=== PATIENT | female | born 1970 ===

== ENCOUNTER → 2020-10-11 08:24 | Outpatient (BNVA) | payer MEDICARE, MEDICAID, SELFPAY | PROVIDERS: Referring Provider Internal Medicine; Visit Provider Psychiatry & Neurology Neurology | DX: R20.2 Paresthesia of skin (principal); G60.9 Hereditary and idiopathic neuropathy, unspecified; M79.671 Pain in right foot; M79.672 Pain in left foot; I10 Essential (primary) hypertension; E11.9 Type 2 diabetes mellitus without complications; Z79.4 Long term (current) use of insulin | CPT/HCPCS: 95909; 99205; G2212 ==

== ENCOUNTER 2021-07-05 13:06 | Outpatient (CLI) | payer MEDICARE, MEDICAID, SELFPAY ==
[2021-07-05 13:31] VITALS: BP 129/88; PULSE 91; RESP 20; TEMP 36.3; O2SAT 95
[2021-07-05 14:39] VITALS: PULSE 94; RESP 20; O2SAT 98
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
[2021-07-05] MEDS: Omnipaque 240 MG/ML 50 ML BTL IJ (14:56)
--- NOTE | 2021-07-05 14:56 | DI.RAD_ITS ---
Exam(s) XR PAIN CLINIC FLUORO JOINT IN EXAM: XR PAIN CLINIC FLUORO JOINT IN CLINICAL HISTORY: Dx: Knee Osteoarthritis TECHNIQUE: 2D and realtime digital imaging was performed. CONTRAST MATERIAL: Refer to procedure report. COMPARISON: No exams were available for comparison FINDINGS: Fluoroscopy was provided for Dr. Dias during the performance of a left genicular block. Please refer to the procedure report for complete details. Ka,r=5.17 mGy IMPRESSION:
[2021-07-05] MEDS: Bupivacaine 0.5% Pres-Free 10 ML VIAL IJ (14:57)
== END 2021-07-05 13:07 | disposition home or self-care (01) ==
LOC: PC 13:06
PROVIDERS: Visit Provider Internal Medicine
DX: M25.562 Pain in left knee (principal); M17.32 Unilateral post-traumatic osteoarthritis, left knee
CPT/HCPCS: 64454; 77002; Q9967

== ENCOUNTER 2021-11-10 09:19 | Outpatient (CLI) | payer MEDICARE, MEDICAID, SELFPAY ==
[2021-11-10 10:02] VITALS: BP 106/70; PULSE 89; RESP 18; TEMP 36.2; O2SAT 96
[2021-11-10] MEDS: Midazolam 2 MG/2 ML VIAL IVP (10:58)
[2021-11-10] MEDS: fentaNYL 100 MCG/2 ML VIAL IVP ×2 (11:00→11:07)
[2021-11-10] MEDS: Bupivacaine 0.5% Pres-Free 10 ML VIAL IJ (11:22)
[2021-11-10] MEDS: Lidocaine 2% Pres-Free 5 ML VIAL IJ (11:23)
[2021-11-10] MEDS: methylPREDNISolone ACETATE 40 MG/ML VIAL IJ (11:23)
--- NOTE | 2021-11-10 11:25 | DI.RAD_ITS ---
Exam(s) XR PAIN CLINIC FLUORO JOINT IN EXAM: XR PAIN CLINIC FLUORO JOINT IN CLINICAL HISTORY: DX: left knee osteoarthritis TECHNIQUE: 2D and realtime digital imaging was performed. Radiologist not present. CONTRAST MATERIAL: None. COMPARISON: No exams were available for comparison FINDINGS: Fluoroscopy was provided for pain management therapy. Please refer to procedure report or details. Total fluoroscopy time 52.8 seconds Cumulative dose: Ka,r=7.76 mGy IMPRESSION: RADIATION DOSE DELIVERED:
--- NOTE | 2021-11-10 11:29 | PDOC.PAIN_ITS ---
Pain Clinic Procedure Note Procedure Note Procedure Note: {RIGHT / LEFT:97588} GENICULAR NERVE RADIOFREQUENCY ABLATION WITH THE COOLIEF MACHINE Date of Service: November 10, 2021 Patient: Rebeca Carreon Provider: Elliott Infante DO, MPH Pre-operative diagnosis: Left knee Osteoarthritis Post-operative diagnosis: Same Preoperative pain VAS = 8/10. COMMENTS: Previous Genicular nerve block to the LEFT knee on 07/05/[address] Nelson. Rebeca Carreon has been referred to the [facility] for LEFT genicular nerve radiofrequency ablation. Rebeca was interviewed and the medical record reviewed. There were no medical, pharmacologic, radiographic or other structural contraindications to attempting fluoroscopically guided LEFT genicular nerve radiofrequency ablation. Risks and potential side effects as well as potential benefit of the procedure were reviewed with Rebeca Carreon , and HER voiced concerns were addressed. After I believed that the patient was completely informed, the printed consent form was signed. Standard time-out procedure was performed. Rebeca was placed in the supine position on the fluoroscopy table and automated blood pressure cuff and pulse oximeter applied. The skin entry points for approaching LEFT superolateral genicular nerve, the suprapatellar sensory branch nerve, the superomedial genicular nerve and the inferomedial genicular was identified under the most advantageous fluoroscopic view and marked. Following thorough Chlorhexadine preparation of the skin and draping, 1% lidocaine infiltration of the skin entry point and subcutaneous tissues was accomplished using a 1.5 25G needle. Next, the 10 cm 18G RF Cannula with a 10 mm active tip was advanced to os at the location of the specific nerve roots (3) using fluoroscopic guidance. Next, sensory and motor testing was performed and no abnormal findings were found. Next, 1 cc of 2% Lidocaine was injected at each site. The lesion was then created with 80 degrees C for 90 seconds. Each needle was advance 1 cm and the lesion was completed again. Each cannula was advanced until the tip reached the posterior aspect of the bone shaft. 1/4 cc of Depomedrol (40 mg/cc) was then injected at each site followed by 1 cc of 0.5% Bupivacaine as the needle was withdrawn. The needles were removed without difficulty. Rebeca's vital signs were stable throughout the procedure and were as recorded in the docflowsheet by the nursing staff. If given, dosages of i ntravenous drugs for anxiolysis and analgesia were documented in NOV. Follow up plans and appointments were discussed with the Rebeca Carreon . Post procedure instruction was given as documented in nursing documentation and having met discharge criteria, Rebeca was discharged from the [facility]. COMMENTS: No complications. Mark WJ1, Sheron SJ, Aj JG, Serjio JG, Bryan DICKINSON, Sabra PH, Piotr JW. Radiofrequency treatment relieves chronic knee osteoarthritis pain: a double-blind randomized controlled trial. Pain. 2011 Nov;152(3):481-7. doi: [email or web address]/[email or web address]. Raegan S1, Gui ON2, Abby Y3, ?zl?lerden P2, Pablo U1, Manish ?m?rl? I. Which one is more effective for the clinical treatment of chronic pain in knee osteoarthritis: radiofrequency neurotomy of the genicular nerves or intra- articular injection? Int J Rheum Dis. 2016 May 12. F/U with our office as needed. Post-procedure pain VAS to the left knee was 0/10. I personally performed this entire procedure. Elliott Infante DO, MPH Attending Physician [facility]
== END 2021-11-10 09:20 | disposition home or self-care (01) ==
LOC: PC 11-11 09:20
PROVIDERS: Visit Provider Preventive Medicine Occupational Medicine
DX: M25.562 Pain in left knee (principal); M17.12 Unilateral primary osteoarthritis, left knee
CPT/HCPCS: 64624; 77002; J1030; J2250; J3010

== ENCOUNTER → 2024-01-30 09:43 | Outpatient (BNVA) | payer MEDICARE, MEDICAID, SELFPAY | PROVIDERS: PCP Internal Medicine; Referring Provider Internal Medicine; Visit Provider Nurse Practitioner Adult Health | DX: G60.9 Hereditary and idiopathic neuropathy, unspecified (principal) | CPT/HCPCS: 95909; 99205 ==